=== PATIENT | male | born 1975 | race Caucasian/White ===

== ENCOUNTER → 2019-08-09 | Outpatient (CLI) | payer OTHER ==
[~2019-08-09] MED LIST: REGADENOSON 0.4 MG/5 ML SYR IV ONE
--- NOTE | 2019-08-13 16:01 | Operative Report ---
DATE OF PROCEDURE: 08/09/2019 SURGEON: Ra Montana MD PROCEDURE PERFORMED: Exercise nuclear stress test report. INDICATION: Chest pain. PROCEDURE: The patient was stressed using a standard Mikey treadmill protocol. Rest and stress Myoview imaging was obtained. Resting heart rate 78 beats and resting blood pressure 141/102. The patient exercised for 10 minutes and 45 seconds. Maximum heart rate 148 beats per minute corresponding to 83% of predicted maximum blood pressure 188/84, oxygen consumption 10.1 METS. No EKG changes were noted. Rest imaging is normal. Stress imaging shows mild decrease in tracer uptake in the LV apex. Normal contractility of the left ventricle. CONCLUSIONS: 1. Normal EKG, clinical and hemodynamic treadmill stress test. 2. Abnormal myocardial perfusion study showing mild disk apical ischemia. 3. LV ejection fraction is 61%. ACCESSION NUMBER: For this study is [id number]. Ra Montana MD KSB/MODL /[id number]
== END ==
LOC: NM 08:59
PROVIDERS: ATTEND Internal Medicine
DX: R07.9 Chest pain, unspecified (principal)
CPT/HCPCS: 78452; 93017; A9502

== ENCOUNTER → 2024-01-18 | Day surgery (SDC) | payer BC, OTHER ==
[~2024-01-18] MED LIST changes: +ACETAMINOPHEN-1 EAC3 PO; +BACITRACIN ZINC 15 GM OINT ONE; +BUPIVACAINE HCL 0.5% INJ 30 ML VIAL INJ ONE; +HYDROCODON-ACE1 EA12 PO; +IBUPROFEN800 MG PO; -REGADENOSON 0.4 MG/5 ML SYR IV ONE
[2024-01-18] MEDS: LACTATED RINGER'S 1,000 ML ONE (09:54)
[2024-01-18 13:25] VITALS: BP 140/89; PULSE 67; RESP 16; O2SAT 96
== END | disposition home or self-care (01) ==
LOC: OR 08:47
PROVIDERS: ATTEND Plastic Surgery
DX: S62.615A Displaced fracture of proximal phalanx of left ring finger, initial encounter for closed fracture (principal); S62.325A Displaced fracture of shaft of fourth metacarpal bone, left hand, initial encounter for closed fracture; E66.01 Morbid (severe) obesity due to excess calories; X58.XXXA Exposure to other specified factors, initial encounter; Z01.810 Encounter for preprocedural cardiovascular examination; Z79.1 Long term (current) use of non-steroidal anti-inflammatories (NSAID)
CPT/HCPCS: 26735; 26746; 93005; C1713 ×4; J0690; J7121